=== PATIENT | male | born 1935 | race Caucasian/White ===

== ENCOUNTER 2017-04-19 11:30 | Emergency (ER) | payer OTHER ==
[~2017-04-19] VITALS: Ht 175.3 cm; Wt 77.1 kg
[2017-04-19 13:06] LABS: Basophils # (auto) 0 uL; Basophils % (auto) 0.2 % (0.0-2.0); Eosinophils # (auto) 0.1 uL; Eosinophils % (auto) 1.1 % (0.0-7.0); Hematocrit 44.1 % (41.0-53.0); Hemoglobin 14.8 g/dL (13.5-17.5); Lymphocytes # (auto) 0.9 uL; Lymphocytes % (auto) 14.4 % (10.0-50.0); Mean Corpuscular Hemoglobin 29.5 pg (28.0-32.0); Mean Corpuscular Hgb Conc. 33.6 g/dL (32.0-36.0); Mean Corpuscular Volume 88.1 fL (80.0-100.0); Monocytes # (auto) 0.5 uL; Monocytes % (auto) 7.2 % (0.0-12.0); Neutrophils # (auto) 4.9 uL; Neutrophils % (auto) 77.1 % (37.0-80.0); Platelet Count (auto) 215 10^3/uL (140-450); Red Cell Distribution Width 15.1 % (11.8-14.3); White Blood Cell 6.4 10^3/uL (4.4-10.8)
[2017-04-19 13:53] LABS: Alanine Aminotransferase 17 U/L (16-61); Alkaline Phosphatase 47 U/L (45-117); Anion Gap 9 (5-15); Aspartate Aminotransferase 15 U/L (15-37); BUN/Creatinine Ratio 10.8; Bilirubin, Total 0.7 mg/dL (0.2-1.0); Blood Urea Nitrogen 12 mg/dL (7-18); Calcium 8.7 mg/dL (8.5-10.1); Carbon Dioxide 24 mmol/L (21-32); Chloride 103 mmol/L (98-107); GFR African American 82 mL/min; GFR Non-African American 67 mL/min; Glucose 105 mg/dL (74-106); Magnesium 2.4 mg/dL (1.6-2.6); Potassium 4.2 mmol/L (3.5-5.1); Sodium 136 mmol/L (136-145); Total Protein 7.7 g/dL (6.4-8.2)
[2017-04-19] MEDS ORDERED: MECLIZINE HCL 25 MG TAB PO ONE (14:45)
[2017-04-19] MEDS ORDERED: cefTRIAXone 1GM/50ML D5W 50 ML IV ONE (14:45)
[2017-04-19 16:52] LABS: Urine Bacteria NONE SEEN /hpf (None Seen); Urine Blood Negative /uL (Negative); Urine Specific Gravity 1.008 (1.001-1.035); Urine WBC 1 /hpf (0 - 3)
[2017-04-19 17:04] VITALS: BP 156/93
== END 2017-04-19 17:51 | disposition home or self-care (01) ==
LOC: ER 11:30
DX: I11.0 Hypertensive heart disease with heart failure (principal); I50.9 Heart failure, unspecified; J01.10 Acute frontal sinusitis, unspecified; E03.9 Hypothyroidism, unspecified; E78.5 Hyperlipidemia, unspecified; Z88.8 Allergy status to other drugs, medicaments and biological substances
CPT/HCPCS: 36415; 70450; 71250; 74176; 80053; 81001; 83735; 84484; 85025; 96365; 99285; J0696; J7030; J8597; 93005